=== PATIENT | male | born 1960 | race Caucasian/White ===

== ENCOUNTER 2023-09-02 18:59 | Inpatient (IN) ==
[2023-09-02 21:20] LABS: Albumin 2.4 g/dL (3.2-5.2); Albumin/Globulin Ratio 0.9 (1-3); Calcium 8.7 mg/dL (8.6-10.3); Creatinine, Serum 0.55 mg/dL (0.67-1.17); Globulin 2.7 g/dL (2-4); Magnesium 1.7 mg/dL (1.9-2.7); Potassium 2.3 mmol/L (3.5-5.0); Total Bilirubin 0.4 mg/dL (0.2-1.0); Total Protein 5.1 g/dL (6.4-8.9); eGFR CKD-EPI 112.8 (>60)
[2023-09-02] MEDS ORDERED: Ondansetron 4 mg VIAL 2 MG/ML 2 ml VIAL IV PRN (22:07)
[2023-09-02] MEDS ORDERED: Vancomycin 1,000 MG in NS 0.9% 250 ml 250 ML IVPB ONE (22:13)
[2023-09-02] MEDS ORDERED: Vancomycin per Pharmacy 1 EA NOTE FOLLOW UP SCH (23:00)
[2023-09-02] MEDS ORDERED: Zosyn per Pharmacy NOTE FOLLOW UP SCH (23:00)
[2023-09-02] MEDS: Magnesium Sulfate 2 gm BAG 2 GM/50 ML BAG IVPB ONE (23:38)
[2023-09-02] MEDS: Lactated Ringers 1000 ml BAG 1,000 ML IV SCH (23:38)
[2023-09-02] MEDS: Lactated Ringers 1000 ml BAG 1,000 ML IV ONE (23:38)
[2023-09-02] MEDS: KCL 10 MEQ/50 ML IVPREMIX 10 MEQ/50 ML BAG IV SCH (23:38)
[2023-09-02] MEDS: Enoxaparin 40 MG/0.4 ML SYR SUBCUT SCH (23:44)
[2023-09-02] MEDS: Potassium Chlor 20 meq TAB.ER PO ONE (23:44)
[2023-09-02 23:48] LABS: Hematocrit 24.8 % (38-53); Hemoglobin 8.5 g/dL (13.2-16.3); Mean Corpuscular Hemoglobin 30.2 pg (27-33); Mean Corpuscular Hgb Conc 34.3 g/dL (31-36); Mean Platelet Volume 8.3 fL (7.5-11.2); Platelet Count 365 10^3/uL (150-450); Red Blood Count 2.82 10^6/uL (4.06-5.63); Red Cell Distribution Width 17.1 % (12-17); White Blood Count 15.4 10^3/uL (3.6-10.2)
[2023-09-02 23:57] LABS: Urine Appearance Cloudy; Urine Bilirubin Negative (Negative); Urine Blood 2+ (Negative); Urine Color Yellow; Urine Glucose Negative (Negative); Urine Ketones Negative (Negative); Urine Nitrite Negative (Negative); Urine Protein Negative (Negative); Urine Specific Gravity 1.021 (1.002-1.030); Urine Urobilinogen Negative (Negative)
[2023-09-03 00:03] LABS: Urine Bacteria Absent (Absent); Urine Red Blood Cell 2+(6-10/hpf) (Absent); Urine Squamous Epithelial Cell Present (Absent); Urine White Blood Cell 3+(>20/hpf) (Absent)
[2023-09-03 00:10] LABS: INR 1.37 (0.83-1.13)
[2023-09-03] MEDS: Piperacillin/Tazobac 3.375 BAG 3.375 GM/100 ML BAG IV ONE (00:12)
[2023-09-03 00:14] LABS: High Sens Troponin Baseline 29 pg/mL (<20)
[2023-09-03 00:20] LABS: Urine Benzodiazepine Screen None Detected (None Detect); Urine Cannabinoids Screen None Detected (None Detect); Urine Opiates Screen None Detected (None Detect)
[2023-09-03] MEDS: Morphine ER 15 mg TAB ** extended release PO SCH (00:34)
[2023-09-03 00:49] LABS: TSH Ultra Thyroid Stim Horm 0.89 mcIU/mL (0.34-5.60)
[2023-09-03 01:19] LABS: High Sensitivity Troponin 1 Hr 31 pg/mL (<20)
[2023-09-03] MEDS: Vancomycin 1000 MG in NS 0.9% 250 ML IVPB SCH (02:26)
[2023-09-03] MEDS: Gemfibrozil 600 mg PO SCH (02:27)
[2023-09-03] MEDS: Nicotine GUM 2MG FRUIT FLAVOR PO PRN (02:28)
[2023-09-03] MEDS: Iodixanol (CONTRAST) 320 MG/ML 100 ML SDV IV ONE (03:34)
[2023-09-03] MEDS: ZOSYN 3.375 GM Q8H per EXTENDED INFUSION IV SCH (04:02)
[2023-09-03 04:15] LABS: ABS Lymphocytes 0.7 10^3/uL (1.0-4.8); ABS Monocytes 0.5 10^3/uL (0.0-1.1); ABS Neutrophils 13.3 10^3/uL (1.5-7.6); ABS Nucleated RBC 0.01 10^3/ul; Eosinophil % 0.1 %; Hematocrit 22.8 % (38-53); Hemoglobin 7.8 g/dL (13.2-16.3); Mean Corpuscular Hgb Conc 34.3 g/dL (31-36); Mean Corpuscular Volume 87.6 fL (80-97); Mean Platelet Volume 8.5 fL (7.5-11.2); Platelet Count 306 10^3/uL (150-450); Red Cell Distribution Width 17.4 % (12-17); White Blood Count 14.5 10^3/uL (3.6-10.2)
[2023-09-03 04:32] LABS: Immature Retic Fraction 0.42
[2023-09-03 04:33] LABS: Albumin 2.4 g/dL (3.2-5.2); Albumin/Globulin Ratio 0.9 (1-3); Calcium 8.1 mg/dL (8.6-10.3); Creatinine, Serum 0.51 mg/dL (0.67-1.17); Globulin 2.6 g/dL (2-4); Phosphorus 3.1 mg/dL (2.5-5.0); Potassium 2.9 mmol/L (3.5-5.0); Total Bilirubin 0.5 mg/dL (0.2-1.0); eGFR CKD-EPI 115.4 (>60)
[2023-09-03 04:56] LABS: Corrected Retic Count 0.6 % (0.5-2.2); Hematocrit for Retic CNT 22.8 % (38-53)
[2023-09-03 05:03] LABS: Ferritin 1202.7 ng/mL (24-336)
[2023-09-03 05:08] LABS: Vitamin B12 461 pg/mL (180-914)
[2023-09-03 05:21] LABS: % Iron Saturation 16 % (15-55); .Transferrin 87 mg/dL (203-362); Iron < 20 ug/dL (50-212); Total Iron Binding Capacity 122 mcg/dL (250-450); Unsaturated Iron Binding 102 ug/dL
[2023-09-03] MEDS: Nicotine PATCH 21 MG/24 HR PATCH TRANSDERM SCH (08:53)
[2023-09-03] MEDS: DULoxetine DR 60 mg CAP PO SCH (08:53)
[2023-09-03] MEDS: Levetiracetam XR 500 MG TAB.XR PO SCH (08:54)
[2023-09-03] MEDS: Potassium Chlor 20 meq TAB.ER PO SCH (08:55)
[2023-09-03] MEDS: KCL 20 MEQ/100 ML IVPREMIX 20 MEQ/100 ML BAG IV SCH (10:14)
[2023-09-03] MEDS: Oxacillin 2 GM in NS 0.9% 100 ml BAG 100 ML IVPB SCH ×2 (10:49→18:25)
[2023-09-03 13:45] LABS: C Reactive Protein 290.97 mg/L (<8.01)
[2023-09-03] MEDS: Enoxaparin 40 MG/0.4 ML SYR SUBCUT ONE (15:32)
[2023-09-03 16:47] LABS: Erythrocyte Sed Rate 50 mm/Hr (0-19)
[2023-09-03 16:53] LABS: Calcium 8.6 mg/dL (8.6-10.3); Creatinine, Serum 0.6 mg/dL (0.67-1.17); Potassium 3.8 mmol/L (3.5-5.0); eGFR CKD-EPI 109.8 (>60)
[2023-09-03] MEDS: Gadoteridol (CONTRAST) 279.3 MG/ML 10 ML IV ONE (20:27)
[2023-09-03] MEDS: Senna TAB 8.6 mg TAB PO SCH (22:36)
[2023-09-04] MEDS: ZOSYN 3.375 GM Q8H per EXTENDED INFUSION IV SCH (00:14)
[2023-09-04 07:12] LABS: INR 1.35 (0.83-1.13)
[2023-09-04 07:13] LABS: ABS Basophils 0.1 10^3/uL (0.0-0.1); ABS Lymphocytes 1.2 10^3/uL (1.0-4.8); ABS Monocytes 0.9 10^3/uL (0.0-1.1); ABS Neutrophils 19.5 10^3/uL (1.5-7.6); ABS Nucleated RBC 0.01 10^3/ul; Eosinophil % 0.1 %; Hematocrit 24.9 % (38-53); Hemoglobin 8.2 g/dL (13.2-16.3); Lymphocyte % 5.4 %; Mean Corpuscular Hemoglobin 29.4 pg (27-33); Mean Corpuscular Hgb Conc 32.8 g/dL (31-36); Mean Corpuscular Volume 89.7 fL (80-97); Mean Platelet Volume 8.4 fL (7.5-11.2); Platelet Count 381 10^3/uL (150-450); Red Blood Count 2.78 10^6/uL (4.06-5.63); Red Cell Distribution Width 17.6 % (12-17); White Blood Count 21.6 10^3/uL (3.6-10.2)
[2023-09-04 08:35] LABS: Calcium 8.3 mg/dL (8.6-10.3); Creatinine, Serum 0.58 mg/dL (0.67-1.17); Magnesium 1.9 mg/dL (1.9-2.7)
[2023-09-04] MEDS: Magnesium Sulfate IV 1GM/100ML 1 GM/100 ML BAG IV ONE (11:11)
[2023-09-04] MEDS ORDERED: Midazolam 2 mg/2 ml VIAL 1 mg/ml 2 ml VIAL (2 mg) ONE (13:09)
[2023-09-04] MEDS ORDERED: Propofol 10 MG/ML 20 ML BTL ONE (13:09)
[2023-09-04] MEDS ORDERED: Dexamethasone IV 4 MG/ML VIAL 1 ml VIAL ONE (13:09)
[2023-09-04] MEDS ORDERED: fentaNYL 100 mcg/2 ml 50 MCG/ML VIAL ONE ×3 (13:09→17:30)
[2023-09-04] MEDS ORDERED: Ondansetron 4 mg VIAL 2 MG/ML 2 ml VIAL ONE (13:09)
[2023-09-04] MEDS ORDERED: Lidocaine 2% PF 5 ML VIAL ONE (13:09)
[2023-09-04] MEDS: Oxacillin 2 GM in NS 0.9% 100 ml BAG 100 ML IVPB SCH (13:24)
[2023-09-04] MEDS ORDERED: Bupivacaine 0.5% SDV PF 30ML VIAL ONE (13:39)
[2023-09-04] MEDS ORDERED: metroNIDAZOLE IV 500 MG/100ML 500 MG/100 ML BAG IVPB SCH (14:00)
[2023-09-04] MEDS ORDERED: Vancomycin 1,000 MG VIAL ONE (14:07)
[2023-09-04] MEDS ORDERED: Rocuronium 50 mg VIAL 10 mg/ml 5 ml VIAL (50 mg) ONE ×2 (14:32→15:48)
[2023-09-04] MEDS ORDERED: Ondansetron 4 mg VIAL 2 MG/ML 2 ml VIAL IV PRN (14:58)
[2023-09-04] MEDS ORDERED: Naloxone 0.4 mg VIAL 0.4 mg/ml 1 ml VIAL IV PRN (14:58)
[2023-09-04] MEDS: fentaNYL 100 mcg/2 ml 50 MCG/ML VIAL IV PRN (17:33)
[2023-09-04] MEDS: D5W 1000 ml BAG 1,000 ML IV SCH (20:46)
[2023-09-04] MEDS: Acetaminophen IV 1 GM/100ML 1,000 MG/100 ML BAG IV SCH (20:49)
[2023-09-04] MEDS: Zinc Oxide 40% (TOPICAL) TUBE TOPICAL SCH (20:51)
[2023-09-05] MEDS: Enoxaparin 40 MG/0.4 ML SYR SUBCUT SCH (05:23)
[2023-09-05 06:59] LABS: ABS Basophils 0.1 10^3/uL (0.0-0.1); ABS Lymphocytes 1.4 10^3/uL (1.0-4.8); ABS Monocytes 0.7 10^3/uL (0.0-1.1); ABS Neutrophils 13.1 10^3/uL (1.5-7.6); Eosinophil % 0.1 %; Hematocrit 21.9 % (38-53); Hemoglobin 7.4 g/dL (13.2-16.3); Lymphocyte % 9.4 %; Mean Corpuscular Hemoglobin 29.8 pg (27-33); Mean Corpuscular Hgb Conc 33.5 g/dL (31-36); Mean Corpuscular Volume 88.8 fL (80-97); Mean Platelet Volume 9.1 fL (7.5-11.2); Platelet Count 291 10^3/uL (150-450); Red Blood Count 2.47 10^6/uL (4.06-5.63); Red Cell Distribution Width 18.2 % (12-17); White Blood Count 15.4 10^3/uL (3.6-10.2)
[2023-09-05 07:18] LABS: Albumin 2.2 g/dL (3.2-5.2); Albumin/Globulin Ratio 0.8 (1-3); C Reactive Protein 181.49 mg/L (<8.01); Calcium 7.8 mg/dL (8.6-10.3); Creatinine, Serum 0.59 mg/dL (0.67-1.17); Globulin 2.7 g/dL (2-4); Potassium 3.5 mmol/L (3.5-5.0); Total Bilirubin 0.4 mg/dL (0.2-1.0); Total Protein 4.9 g/dL (6.4-8.9); eGFR CKD-EPI 110.4 (>60)
[2023-09-05] MEDS ORDERED: Magnesium Hydroxide LIQ 30 ML UDC PO PRN (11:21)
[2023-09-05] MEDS: KCL 20 MEQ/100 ML IVPREMIX 20 MEQ/100 ML BAG IV SCH (11:33)
[2023-09-05 12:57] LABS: Calcium 8.1 mg/dL (8.6-10.3); Creatinine, Serum 0.58 mg/dL (0.67-1.17); Potassium 3.5 mmol/L (3.5-5.0)
[2023-09-05] MEDS: Polyethylene Glycol 3350 17 GM PACKET PO PRN (16:43)
[2023-09-05 17:52] LABS: Hematocrit 29.3 % (38-53); Hemoglobin 9.8 g/dL (13.2-16.3)
[2023-09-05] MEDS: Magnesium Hydroxide LIQ 30 ML UDC PO SCH (20:33)
[2023-09-06 06:19] LABS: ABS Basophils 0.1 10^3/uL (0.0-0.1); ABS Eosinophils 0.1 10^3/uL (0.0-0.5); ABS Lymphocytes 1.1 10^3/uL (1.0-4.8); ABS Monocytes 0.6 10^3/uL (0.0-1.1); ABS Neutrophils 9.9 10^3/uL (1.5-7.6); ABS Nucleated RBC 0.01 10^3/ul; Eosinophil % 0.9 %; Hematocrit 28.5 % (38-53); Hemoglobin 9.7 g/dL (13.2-16.3); Lymphocyte % 9.6 %; Mean Corpuscular Hemoglobin 30.1 pg (27-33); Mean Corpuscular Hgb Conc 33.8 g/dL (31-36); Mean Platelet Volume 8.7 fL (7.5-11.2); Nucleated Red Blood Cells % 0.1 %/100WBC (0.0-0.8); Platelet Count 379 10^3/uL (150-450); Red Blood Count 3.21 10^6/uL (4.06-5.63); Red Cell Distribution Width 17.1 % (12-17); White Blood Count 11.8 10^3/uL (3.6-10.2)
[2023-09-06] MEDS: Magnesium Sulfate 2 gm BAG 2 GM/50 ML BAG IVPB ONE (08:37)
[2023-09-06 11:59] LABS: Calcium 7.5 mg/dL (8.6-10.3); Creatinine, Serum 0.48 mg/dL (0.67-1.17); Potassium 3.6 mmol/L (3.5-5.0); eGFR CKD-EPI 117.5 (>60)
[2023-09-06] MEDS: Polyethylene Glycol 3350 17 GM PACKET PO SCH (12:37)
[2023-09-07 06:39] LABS: ABS Eosinophils 0.2 10^3/uL (0.0-0.5); ABS Monocytes 0.6 10^3/uL (0.0-1.1); ABS Neutrophils 11.8 10^3/uL (1.5-7.6); ABS Nucleated RBC 0.01 10^3/ul; Eosinophil % 1.8 %; Hematocrit 29.6 % (38-53); Hemoglobin 9.9 g/dL (13.2-16.3); Lymphocyte % 7.6 %; Mean Corpuscular Hemoglobin 29.5 pg (27-33); Mean Corpuscular Hgb Conc 33.3 g/dL (31-36); Mean Corpuscular Volume 88.7 fL (80-97); Mean Platelet Volume 8.8 fL (7.5-11.2); Nucleated Red Blood Cells % 0.1 %/100WBC (0.0-0.8); Platelet Count 448 10^3/uL (150-450); Red Blood Count 3.34 10^6/uL (4.06-5.63); Red Cell Distribution Width 17.5 % (12-17); White Blood Count 13.7 10^3/uL (3.6-10.2)
[2023-09-07 06:56] LABS: Magnesium 1.8 mg/dL (1.9-2.7)
[2023-09-07 08:44] LABS: Calcium 7.3 mg/dL (8.6-10.3); Creatinine, Serum 0.49 mg/dL (0.67-1.17); Potassium 3.5 mmol/L (3.5-5.0); eGFR CKD-EPI 116.8 (>60)
[2023-09-07] MEDS: KCL 10 MEQ/50 ML IVPREMIX 10 MEQ/50 ML BAG IV SCH (09:22)
[2023-09-07] MEDS ORDERED: Propofol 10 MG/ML 20 ML BTL ONE ×2 (11:50→14:20)
[2023-09-07] MEDS ORDERED: Midazolam 5 mg/5 ml VIAL 1 mg/ml 5 ml VIAL (5 mg) ONE (11:50)
[2023-09-07] MEDS ORDERED: fentaNYL 100 mcg/2 ml 50 MCG/ML VIAL ONE (11:50)
[2023-09-07] MEDS ORDERED: Lidocaine 2% PF 5 ML VIAL ONE ×2 (11:50→14:20)
[2023-09-07] MEDS ORDERED: HYDROcodone/ACETAMIN 5/325 mg TAB PO PRN (15:19)
[2023-09-07] MEDS ORDERED: Metoclopramide 5 MG/ML VIAL (10 mg) IV PRN (15:19)
[2023-09-07] MEDS ORDERED: Naloxone 0.4 mg VIAL 0.4 mg/ml 1 ml VIAL IV PRN ×2 (15:19→19:17)
[2023-09-07] MEDS ORDERED: Ondansetron 4 mg VIAL 2 MG/ML 2 ml VIAL IV PRN ×2 (15:19→19:17)
[2023-09-07] MEDS ORDERED: fentaNYL 100 mcg/2 ml 50 MCG/ML VIAL IV PRN ×2 (15:19→19:17)
[2023-09-07] MEDS ORDERED: Vancomycin 1,000 MG VIAL ONE ×2 (16:17→17:49)
[2023-09-07] MEDS ORDERED: Acetaminophen IV 1 GM/100ML 1,000 MG/100 ML BAG IV ONE (17:11)
[2023-09-07] MEDS ORDERED: Phenylephrine 40 mcg/mL 10mL (400mcg) SYRINGE ONE ×2 (17:32→18:12)
[2023-09-07] MEDS ORDERED: Mineral Oil Sterile, TOPICAL 25 ML BTL ONE (18:12)
[2023-09-07] MEDS ORDERED: HYDROmorphone 1 MG/1 ML SYRINGE IV PRN (19:17)
[2023-09-07] MEDS ORDERED: HYDROmorphone 0.5 MG/0.5 ML SYRINGE ONE (19:19)
[2023-09-07] MEDS ORDERED: Bupivacaine 0.25% SDV 30 ML ONE (20:06)
[2023-09-07 21:27] LABS: Hematocrit 31.1 % (38-53); Hemoglobin 10.4 g/dL (13.2-16.3)
[2023-09-07] MEDS: Buffered Lidocaine 1% SYRIN 1 ml INTRADERM ONE (22:38)
[2023-09-07] MEDS: Sodium Citrate/Citric Acid LIQ 15 ML UDC PO ONE (22:39)
[2023-09-07] MEDS: Lactated Ringers 1000 ml BAG 1,000 ML IV SCH (22:39)
[2023-09-07] MEDS: Tobramycin POWDER 1.2 GM VIAL ONE (22:40)
[2023-09-08 07:00] LABS: ABS Eosinophils 0.1 10^3/uL (0.0-0.5); ABS Lymphocytes 1.6 10^3/uL (1.0-4.8); ABS Monocytes 0.8 10^3/uL (0.0-1.1); ABS Neutrophils 10.8 10^3/uL (1.5-7.6); Hematocrit 27.9 % (38-53); Hemoglobin 9.3 g/dL (13.2-16.3); Lymphocyte % 11.9 %; Mean Corpuscular Hemoglobin 29.8 pg (27-33); Mean Corpuscular Hgb Conc 33.2 g/dL (31-36); Mean Corpuscular Volume 89.7 fL (80-97); Mean Platelet Volume 8.4 fL (7.5-11.2); Platelet Count 475 10^3/uL (150-450); Red Blood Count 3.11 10^6/uL (4.06-5.63); Red Cell Distribution Width 17.8 % (12-17); White Blood Count 13.3 10^3/uL (3.6-10.2)
[2023-09-08 07:16] LABS: Calcium 7.3 mg/dL (8.6-10.3); Creatinine, Serum 0.47 mg/dL (0.67-1.17); Magnesium 1.9 mg/dL (1.9-2.7); Potassium 4.2 mmol/L (3.5-5.0); eGFR CKD-EPI 118.2 (>60)
[2023-09-08] MEDS: fentaNYL 100 mcg/2 ml 50 MCG/ML VIAL ONE ×2 (13:16→13:17)
[2023-09-08] MEDS: Enoxaparin 40 MG/0.4 ML SYR SUBCUT SCH (16:18)
[2023-09-09 06:03] LABS: ABS Eosinophils 0.2 10^3/uL (0.0-0.5); ABS Monocytes 0.5 10^3/uL (0.0-1.1); ABS Neutrophils 8.4 10^3/uL (1.5-7.6); ABS Nucleated RBC 0.01 10^3/ul; Eosinophil % 1.9 %; Hematocrit 25.2 % (38-53); Hemoglobin 8.5 g/dL (13.2-16.3); Lymphocyte % 9.4 %; Mean Corpuscular Hemoglobin 30.3 pg (27-33); Mean Corpuscular Hgb Conc 33.8 g/dL (31-36); Mean Corpuscular Volume 89.8 fL (80-97); Mean Platelet Volume 8.2 fL (7.5-11.2); Nucleated Red Blood Cells % 0.1 %/100WBC (0.0-0.8); Platelet Count 448 10^3/uL (150-450); Red Blood Count 2.81 10^6/uL (4.06-5.63); Red Cell Distribution Width 17.4 % (12-17); White Blood Count 10.1 10^3/uL (3.6-10.2)
[2023-09-09 06:26] LABS: Calcium 7.4 mg/dL (8.6-10.3); Creatinine, Serum 0.52 mg/dL (0.67-1.17); Magnesium 1.8 mg/dL (1.9-2.7); Potassium 3.7 mmol/L (3.5-5.0); eGFR CKD-EPI 114.7 (>60)
[2023-09-09] MEDS: Magnesium Sulfate IV 1GM/100ML 1 GM/100 ML BAG IV ONE (08:49)
[2023-09-09] MEDS: Potassium EFFERVES 25 meq TAB PO ONE (09:33)
[2023-09-10 08:33] LABS: ABS Eosinophils 0.1 10^3/uL (0.0-0.5); ABS Lymphocytes 0.7 10^3/uL (1.0-4.8); ABS Monocytes 0.6 10^3/uL (0.0-1.1); ABS Neutrophils 12.8 10^3/uL (1.5-7.6); ABS Nucleated RBC 0.01 10^3/ul; Eosinophil % 0.7 %; Hematocrit 25.4 % (38-53); Hemoglobin 8.5 g/dL (13.2-16.3); Lymphocyte % 5.1 %; Mean Corpuscular Hgb Conc 33.3 g/dL (31-36); Mean Corpuscular Volume 90.3 fL (80-97); Mean Platelet Volume 7.9 fL (7.5-11.2); Nucleated Red Blood Cells % 0.1 %/100WBC (0.0-0.8); Platelet Count 530 10^3/uL (150-450); Red Blood Count 2.81 10^6/uL (4.06-5.63); Red Cell Distribution Width 17.5 % (12-17); White Blood Count 14.3 10^3/uL (3.6-10.2)
[2023-09-10 08:51] LABS: Calcium 7.4 mg/dL (8.6-10.3); Creatinine, Serum 0.52 mg/dL (0.67-1.17); Magnesium 1.8 mg/dL (1.9-2.7); Potassium 3.3 mmol/L (3.5-5.0); eGFR CKD-EPI 114.7 (>60)
[2023-09-10] MEDS: Magnesium Sulfate 2 gm BAG 2 GM/50 ML BAG IVPB ONE (11:26)
[2023-09-10] MEDS: KCL 10 MEQ/50 ML IVPREMIX 10 MEQ/50 ML BAG IV SCH (12:52)
[2023-09-10 13:08] LABS: C Reactive Protein 115.97 mg/L (<8.01)
[2023-09-10] MEDS: oxyCODONE SR 10 mg TAB PO SCH (15:48)
[2023-09-11 05:37] VITALS: BP 129/86
[2023-09-11 08:46] LABS: ABS Eosinophils 0.1 10^3/uL (0.0-0.5); ABS Lymphocytes 0.8 10^3/uL (1.0-4.8); ABS Monocytes 0.5 10^3/uL (0.0-1.1); ABS Neutrophils 11.6 10^3/uL (1.5-7.6); Eosinophil % 0.9 %; Hematocrit 25.6 % (38-53); Hemoglobin 8.4 g/dL (13.2-16.3); Lymphocyte % 6.1 %; Mean Corpuscular Hemoglobin 29.9 pg (27-33); Mean Corpuscular Hgb Conc 32.9 g/dL (31-36); Mean Platelet Volume 7.7 fL (7.5-11.2); Platelet Count 499 10^3/uL (150-450); Red Blood Count 2.81 10^6/uL (4.06-5.63); Red Cell Distribution Width 17.8 % (12-17); White Blood Count 13.1 10^3/uL (3.6-10.2)
[2023-09-11 09:14] LABS: C Reactive Protein 101.86 mg/L (<8.01); Calcium 7.5 mg/dL (8.6-10.3); Creatinine, Serum 0.57 mg/dL (0.67-1.17); Potassium 3.3 mmol/L (3.5-5.0); eGFR CKD-EPI 111.5 (>60)
[2023-09-11] MEDS ORDERED: Vancomycin 1,500 MG in NS 0.9% 250 ml 250 ML IVPB SCH (12:00)
[2023-09-11] MEDS: Potassium EFFERVES 25 meq TAB PO ONE (12:01)
[2023-09-11 12:41] LABS: Rapid COVID-19 Molecular Undetected (Undetected)
[2023-09-12] MEDS ORDERED: Potassium EFFERVES 25 meq TAB PO SCH (09:00)
== END 2023-09-11 14:15 | DRG 463 ==
LOC: ED 18:59 → SUATTDRO 22:07 → EDHOLD 22:07 → MED 09-03 11:25
PROVIDERS: ADMIT Internal Medicine; ATTEND Student in an Organized Health Care Education/Training Program

== ENCOUNTER 2024-06-27 06:23 | Inpatient (IN) ==
[~2024-06-27 06:23] MED LIST: Lidocaine 1% w EPI 1:200,000 SDV 30 ML VIAL ONE; Naloxone 0.4 mg VIAL 0.4 mg/ml 1 ml VIAL IV PRN; Ondansetron 4 mg VIAL 2 MG/ML 2 ml VIAL IV PRN; Vancomycin 1,000 MG VIAL ONE
[2024-06-27 07:01] LABS: Rapid COVID-19 Molecular Undetected (Undetected)
[2024-06-27] MEDS ORDERED: Tranexamic Acid 1 GM/100ML BAG 2,000 MG/200 ML BAG IV ONE (07:08)
[2024-06-27] MEDS ORDERED: Clindamycin 900 MG/50 **NS BAG 900 MG/50 ML BAG ONE ×2 (07:08→17:37)
[2024-06-27] MEDS ORDERED: ROPIVACAINE 5 MG/ML 30 ML BTL (0.5%) ONE (09:20)
[2024-06-27] MEDS ORDERED: fentaNYL 100 mcg/2 ml 50 MCG/ML VIAL IV PRN (09:21)
[2024-06-27] MEDS ORDERED: Naloxone 0.4 mg VIAL 0.4 mg/ml 1 ml VIAL IV PRN (09:21)
[2024-06-27] MEDS ORDERED: Ondansetron 4 mg VIAL 2 MG/ML 2 ml VIAL IV PRN ×2 (09:21→18:06)
[2024-06-27] MEDS ORDERED: Propofol 10 MG/ML 20 ML BTL ONE (09:24)
[2024-06-27] MEDS ORDERED: Rocuronium 50 mg VIAL 10 mg/ml 5 ml VIAL (50 mg) ONE ×3 (09:24→15:09)
[2024-06-27] MEDS ORDERED: Midazolam 2 mg/2 ml VIAL 1 mg/ml 2 ml VIAL (2 mg) ONE (09:24)
[2024-06-27] MEDS ORDERED: Lidocaine 2% PF 5 ML VIAL ONE ×2 (09:24→17:06)
[2024-06-27] MEDS ORDERED: Dexamethasone IV 4 MG/ML VIAL 1 ml VIAL ONE ×2 (09:24→17:07)
[2024-06-27] MEDS ORDERED: fentaNYL 100 mcg/2 ml 50 MCG/ML VIAL ONE ×7 (09:24→18:59)
[2024-06-27] MEDS ORDERED: Vancomycin 1,000 MG VIAL ONE ×2 (09:25→10:18)
[2024-06-27] MEDS ORDERED: NS 0.45% 1000 ml BAG 1,000 ML IV SCH (10:00)
[2024-06-27] MEDS ORDERED: HYDROmorphone 0.5 MG/0.5 ML SYRINGE ONE (15:58)
[2024-06-27] MEDS ORDERED: Labetalol IV 5 MG/ML 20 ml VIAL ONE (16:46)
[2024-06-27] MEDS ORDERED: Ondansetron 4 mg VIAL 2 MG/ML 2 ml VIAL ONE (17:07)
[2024-06-27] MEDS ORDERED: Acetaminophen IV 1 GM/100ML 1,000 MG/100 ML BAG IV ONE (17:10)
[2024-06-27] MEDS ORDERED: Lactulose 30 ml UDC PO PRN (18:06)
[2024-06-27] MEDS ORDERED: Calcium Carb (TUMS) 500 mg CHEW TAB PO PRN (18:06)
[2024-06-27] MEDS ORDERED: Ondansetron ODT 4 mg TAB 4 MG TAB PO PRN (18:06)
[2024-06-27] MEDS ORDERED: Magnesium Hydroxide LIQ 30 ML UDC PO PRN (18:06)
[2024-06-27] MEDS: fentaNYL 100 mcg/2 ml 50 MCG/ML VIAL IV PRN (18:23)
[2024-06-27] MEDS: Morphine 2 MG/ML SYRINGE IV PRN (20:52)
[2024-06-27] MEDS: Magnesium Hydroxide LIQ 30 ML UDC PO SCH (20:53)
[2024-06-27] MEDS: Lactated Ringers 1000 ml BAG 1,000 ML IV SCH (20:59)
[2024-06-28] MEDS: Acetaminophen IV 1 GM/100ML 1,000 MG/100 ML BAG IV ONE ×2 (00:20→07:00)
[2024-06-28 00:22] LABS: Hematocrit 33.6 % (38-53); Hemoglobin 11.3 g/dL (13.2-16.3)
[2024-06-28] MEDS: Buffered Lidocaine 1% SYRIN 1 ml INTRADERM ONE ×2 (00:22→07:00)
[2024-06-28] MEDS: Scopolamine 1 mg/72hr PATCH TRANSDERM ONE ×2 (00:23→07:00)
[2024-06-28] MEDS: Lactated Ringers 1000 ml BAG 1,000 ML IV SCH ×2 (00:25→07:00)
[2024-06-28] MEDS: CMCS:Levetiracetam XR 500 MG TAB.XR PO SCH (02:38)
[2024-06-28] MEDS: Clindamycin 900 MG/D5W BAG 900 MG/50 ML BAG IVPB SCH ×2 (02:43→17:14)
[2024-06-28] MEDS: Morphine 2 MG/ML SYRINGE IV ONE (06:07)
[2024-06-28 06:21] LABS: Hematocrit 31.4 % (38-53); Hemoglobin 10.6 g/dL (13.2-16.3); Mean Platelet Volume 8.9 fL (7.5-11.2); Platelet Count 234 10^3/uL (150-450)
[2024-06-28 06:40] LABS: Calcium 8.7 mg/dL (8.6-10.3); Creatinine, Serum 0.65 mg/dL (0.67-1.17); Potassium 4.1 mmol/L (3.5-5.0); eGFR CKD-EPI 106.5 (>60)
[2024-06-28 06:56] LABS: TSH Ultra Thyroid Stim Horm 1.18 mcIU/mL (0.34-5.60)
[2024-06-28] MEDS: Vitamin THERAPEUTIC TAB PO SCH (08:24)
[2024-06-28] MEDS: Isosorbide Mononit ER 30mg TAB PO SCH (11:21)
[2024-06-28] MEDS: CMC:Ranolazine 500 mg TAB ER (NF) PO SCH (11:22)
[2024-06-28] MEDS: Gemfibrozil 600 mg PO SCH (11:22)
[2024-06-28] MEDS: DULoxetine DR 60 mg CAP PO SCH (11:22)
[2024-06-28] MEDS ORDERED: Vancomycin per Pharmacy 1 EA NOTE FOLLOW UP SCH (16:00)
[2024-06-28] MEDS: Vancomycin 1,750 MG in NS 0.9% 500 ml BAG 500 ML IVPB ONE (17:14)
[2024-06-28] MEDS: Morphine ER 15 mg TAB ** extended release PO SCH (21:30)
[2024-06-29 07:00] LABS: Hematocrit 26.1 % (38-53); Hemoglobin 9.1 g/dL (13.2-16.3); Mean Platelet Volume 8.9 fL (7.5-11.2); Platelet Count 160 10^3/uL (150-450)
[2024-06-29] MEDS: CMC:Levetiracetam XR 500 MG TAB.XR PO SCH (08:49)
[2024-06-29 13:47] VITALS: BP 100/62
== END 2024-06-29 14:30 | DRG 941 ==
LOC: AA 06:23 → INTOOBSV 06:23 → EDSTATUS 09:45 → SSU 20:07 → UNDODISIN 06-29 14:30
PROVIDERS: ADMIT Orthopaedic Surgery; ATTEND Orthopaedic Surgery